=== PATIENT | male | born 1995 | race Two or more races ===

== ENCOUNTER 2019-08-05 18:55 | Emergency (ER) | payer OTHER ==
[~2019-08-05] VITALS: Ht 170.2 cm; Wt 77.3 kg
[2019-08-05 18:56] VITALS: BP 130/73
[2019-08-05] MEDS ORDERED: TYLENOL (19:06)
[2019-08-05] MEDS ORDERED: ACET-683 PO (19:07)
[2019-08-05] MEDS ORDERED: PROAAER10 INH (19:51)
[2019-08-05] MEDS ORDERED: ZITHTAB PO (19:51)
[2019-08-05] MEDS ORDERED: AZITHROMYCIN 250 MG TAB PO ONE (20:00)
[2019-08-05 20:10] LABS: INFLUENZA A AMPLIFICATION NEGATIVE (NEGATIVE); INFLUENZA B AMPLIFICATION NEGATIVE (NEGATIVE)
== END 2019-08-05 20:32 | disposition home or self-care (01) ==
LOC: M ED 18:55
DX: J06.9 Acute upper respiratory infection, unspecified (principal); F17.290 Nicotine dependence, other tobacco product, uncomplicated

== ENCOUNTER → 2020-01-17 | Outpatient (CLI) | payer OTHER ==
[~2020-01-17] MED LIST: ACET-683 PO; PROAAER10 INH; TYLENOL; ZITHTAB PO
--- NOTE | 2020-01-17 09:37 | PFTRPT ---
Height: 67.00 Inches Weight: 165.00 Lbs BSA: 1.86 Diagnosis: DYSPNEA DATE OF PROCEDURE: 01/17/2020 ORDERED BY: Derian Silver Spirometry: Pre and post bronchodilator study of excellent technical quality. Forced vital capacity normal. FEV1 in proportion. Obstructive index is, therefore, normal. Flow Volume Loop: Expiratory limb of the flow volume loop is normal. No significant bronchodilator response identified. Lung Volumes: Total lung capacity normal. Residual volume is in proportion. Diffusing Capacity: Diffusing capacity normal. Hemoglobin: Hemoglobin acceptable at 14.9. Airway Mechanics: Airway resistance and conductance are normal. IMPRESSION: Normal study. MTDD
== END ==
LOC: M CARPUL 08:52
PROVIDERS: ATTEND Physician Assistant
DX: R06.00 Dyspnea, unspecified (principal); R06.2 Wheezing

== ENCOUNTER → 2020-01-19 | Outpatient (CLI) | payer OTHER ==
[~2020-01-19] MED LIST changes: +METHACHOLINE KIT (J7674) INH ONE
--- NOTE | 2020-01-20 07:37 | PFTRPT ---
Site: [facility], [address] [place], [address] ID: [id number] Name: ÁNGEL DICKERSON Visit Date: 01/19/2020 Second ID: [id number] Referring Doctor: Derian Silver Reviewing Doctor: Sumit Red MD Shot Dropper: Mariela Grant Age: 24 : 1995 Sex: Male Race: <Unspecified> Height: 67.00 Inches Weight: 165.00 Lbs BSA: 1.86 Order IDs: [id number] Requested Test(s): <RESP-PFT.BROCHOPROV> Diagnosis: DYSPNEA, UNSPECIFIED of albuterol for postbronchodilator. Review Status: Not Reviewed Pre-Bronch Post-Bronch Pred Actual %Pred Actual %Chng SPIROMETRY FVC (L) 5.09 4.18 82 4.24 1 FEV1 (L) 4.26 3.65 85 3.71 1 FEV1/FVC (%) 83 87 105 88 FEF 25% (L/sec) 8.04 7.24 89 7.98 10 FEF 50% (L/sec) 5.80 5.31 91 5.29 FEF 75% (L/sec) 2.21 2.08 94 2.16 3 FEF 25-75% (L/sec) 4.58 4.34 94 4.49 3 FEF Max (L/sec) 9.48 7.27 76 8.18 12 FIVC (L) 3.35 3.28 -2 FIF 50% (L/sec) 5.70 3.09 54 3.08 FIF Max (L/sec) 3.27 3.78 15 Expiratory Time (sec) 7.11 6.87 -3 Back Extrap Vol (L) 0.13 0.18 39 Time To FEFmax (sec) 0.115 0.101 -12
== END ==
LOC: M CARPUL 07:48
PROVIDERS: ATTEND Physician Assistant
DX: R06.2 Wheezing (principal); R06.00 Dyspnea, unspecified